=== PATIENT | male | born 1975 | race Caucasian/White ===

== ENCOUNTER 2024-03-03 19:01 | Emergency (ER) | payer SELFPAY ==
[~2024-03-03] VITALS: Ht 182.9 cm; Wt 85.7 kg
[2024-03-03 19:15] VITALS: BP 126/86; PULSE 64; RESP 18; TEMP 98; O2SAT 98
[2024-03-03 19:21] VITALS: O2SAT 99
[2024-03-03] MEDS: KETOROLAC 30 MG/ML VIAL IM ONE (19:58)
[2024-03-03 20:09] LABS: APPEARANCE,URINE CLEAR (CLEAR); BILIRUBIN,URINE NEGATIVE (NEGATIVE); BLOOD, URINE NEGATIVE (NEGATIVE); COLOR,URINE YELLOW (YELLOW); LEUKOCYTE ESTERASE ,URINE NEGATIVE (NEGATIVE); NITRITE, URINE NEGATIVE (NEGATIVE); PROTEIN,URINE NEGATIVE (NEGATIVE); UGLUCOSE NEGATIVE (NEGATIVE); UROBILINOGEN,URINE 0.2 EU/dL (0.2 - 1)
[2024-03-03] MEDS ORDERED: IBUP-2213 PO (20:41)
[2024-03-03] MEDS ORDERED: DICL20GE TP (20:41)
== END 2024-03-03 20:46 | disposition home or self-care (01) ==
LOC: MED 19:01
DX: S33.5XXA Sprain of ligaments of lumbar spine, initial encounter (principal); K59.00 Constipation, unspecified; F17.210 Nicotine dependence, cigarettes, uncomplicated; Z90.49 Acquired absence of other specified parts of digestive tract; Z79.899 Other long term (current) drug therapy; X58.XXXA Exposure to other specified factors, initial encounter; Y93.89 Activity, other specified; Y92.89 Other specified places as the place of occurrence of the external cause; Y99.8 Other external cause status
CPT/HCPCS: 81003; 96372; 99283; J1885